=== PATIENT | male | born 1980 | race Caucasian/White ===

== ENCOUNTER 2021-01-27 19:17 | Inpatient (IN) | payer BC ==
[~2021-01-27] VITALS: Ht 182.9 cm; Wt 89.0 kg
--- NOTE | ~2021-01-27 | EMS ---
[facility] [address] [place] [address] EMS Patient Care Report Name: PASCUAL GARCIA Room #: REG Melinda#: [id number] Admission: 01/27/21 Attend Phys: Discharge: Date of : 76 Report #: [id number] THIS REPORT FOR: //name// Report Transmitted: 01/27/2021 19:30 EMS Care Summary [place], [place]/[facility] Incident [id number] @ 01/27/2021 18:40 Incident Location [address] [place] [address] Patient PASCUAL GARCIA Male, 41 Years 1980 Patient Address [address] [place] [address] Patient Medications Ambien, Chief Complaint Cardiac arrest Disposition Transported [place] Dispatch Reason Overdose/Poisoning/Ingestion Transported To [facility] Narrative Initially dispatched with [employer] for an overdose. [employer] arrived on scene and reported over the radio that CPR was in progress. Upon EMS arrival patient was found laying supine on the ground outside of a vehicle, CPR being performed by [employer] crew, iGel inserted, AED attached, unconscious, pulseless, apneic. Girlfriend reported that the patient had been drinking alcohol, had taken Ambien, and an erectile dysfunction medication today. She stated that he had complained of "not feeling well" most of the afternoon. Girlfriend stated that they were driving in the car when he went unconscious. She stated that she [facility] [address] [place] [address] EMS Patient Care Report Name: PASCUAL GARCIA Room #: REG [facility]..#: [id number] Admission: 01/27/21 Attend Phys: Discharge: Date of : 76 Report #: [id number] pulled over, checked his pulse, and immediately began CPR and called 911. [employer] crew reported that their AED had not found a shockable rhythm. Multi-use pads were removed from the AED and connected to the bus monitor. monitor technician showed Asystole. Quick assessment found no adequate IV site and IO was established. Initial dose of Epi was given. Auto Pulse was deployed. Next rhythm check showed PEA. Due to potential narcotic use with alcohol, Narcan was given. After the Narcan and second Epi, bus monitor showed Sinus Rhythm and pulses were palpable. Patient was moved to the stretcher, secured, and loaded into the ambulance. 12-lead EKG showed Sinus rhythm with Right Bundle Branch Block. Patient was transported to [facility] without incident or further cardiac arrest. Full report was given to RN and MD prior to signing this document. Initial Vitals @18:51P: 186,R: 13,EtCO2: 21, @18:51P: 182,R: 14,EtCO2: 19, @18:55P: 164,R: 14,EtCO2: 39, @19:11P: 86,R: 18,EtCO2: 58,SpO2: 67, @19:12P: 87,R: 12,BP: 43/29,EtCO2: 55,SpO2: 59, @19:07P: 79,R: 14,BP: 156/126,EtCO2: 56,SpO2: 74, @19:10P: 79,EtCO2: 56,SpO2: 59, @18:56P: 39,R: 56,EtCO2: 38, @19:06P: 85,R: 15,CO: 6,EtCO2: 58,SpO2: 85, @18:59P: 97,R: 20,EtCO2: 87, @19:02P: 95,R: 5,BP: 62/40,EtCO2: 85, @19:08P: 81,R: 13,EtCO2: 53,SpO2: 65, @18:54P: 167,R: 15,EtCO2: 35, @18:55P: 164,R: 15,EtCO2: 44, @19:03P: 86,R: 0,GCS: 3,CO: 4,EtCO2: 89,SpO2: 92,IA Suspected: false @18:54P: 0,GCS: 3,EtCO2: 30,IA Suspected: false @18:49P: 0,R: 0,Pain: 0/10,GCS: 3,Glucose: 83,IA Suspected: false @19:14P: 78,R: 11,GCS: 3,EtCO2: 58,SpO2: 62, Assessments @18:49MENTAL:Unresponsive,SKIN:Pale,HEENT:Eyes: Left: Dilated,Eyes: Right: Dilated,Head/Face: No Abnormalities,Neck/Airway: No Abnormalities,LUNG SOUNDS:General: No Abnormalities,Left Upper: No Abnormalities,Right Upper: No Abnormalities,Left Lower: No Abnormalities,Right Lower: No Abnormalities,ABDOMEN:General: No Abnormalities,Left Upper: No Abnormalities,Right Upper: No Abnormalities,Left Lower: No Abnormalities,Right Lower: No Abnormalities,PELVIS//GI:No Abnormalities,EXTREMITIES:Left Arm: No Abnormalities,Right Arm: No Abnormalities,Left Leg: No Abnormalities,Right Leg: No Abnormalities,PULSE:NEURO:@19:02MENTAL:Unresponsive,SKIN:Pale,HEENT:Head/Face: No Abnormalities,Eyes: No Abnormalities,Neck/Airway: No Abnormalities,LUNG SOUNDS:General: No Abnormalities,Left Upper: No Abnormalities,Right Upper: No [facility] [address] [place] [address] EMS Patient Care Report Name: JOSEPASCUALCARMEN LYN Room #: REG [facility]#: [id number] Admission: 01/27/21 Attend Phys: Discharge: Date of : 76 Report #: [id number] Abnormalities,Left Lower: No Abnormalities,Right Lower: No Abnormalities,ABDOMEN:General: No Abnormalities,Left Upper: No Abnormalities,Right Upper: No Abnormalities,Left Lower: No Abnormalities,Right Lower: No Abnormalities,PELVIS//GI:No Abnormalities,EXTREMITIES:Left Arm: No Abnormalities,Right Arm: No Abnormalities,Left Leg: No Abnormalities,Right Leg: No Abnormalities,PULSE:NEURO: Impression Cardiac arrest Procedures @19:0312-Lead ECGResponse: UnchangedSucceeded@18:50Epinephrine 1:10 - 1 Milligrams (mg) - Intraosseous (IO)Response: Improved@PTAResponse: ImprovedSucceeded@18:55Epinephrine 1:10 - 1 Milligrams (mg) - Intraosseous (IO)Response: Improved@18:49ALS AssessmentResponse: UnchangedSucceeded@18:54Narcan - 2 Milligrams (mg) - Endotracheal Tube (ET)Response: Improved@18:50Normal Saline (.9% NaCl) 150cc (EZ-IO (Blue 25mm)) Site: DD-Lpcmm-Oixt ProximalResponse: UnchangedSucceeded@PTAiGEL Response: UnchangedSucceeded@18:53Response: ImprovedSucceeded Timeline 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,Response: ImprovedSucceeded, 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,iGEL Response: UnchangedSucceeded, 18:39,Call Received 18:39,Dispatch Notified 18:40,Dispatched 18:41,En Route 18:48,On Scene 18:49,At Patient 18:49,ALS Assessment,Response: UnchangedSucceeded, 18:49,BP: / M,PULSE: 0,RR: 0 R,SPO2: Ox,ETCO2: ,B,PAIN: 0,GCS: 3, 18:50,Normal Saline (.9% NaCl) 150cc EZ-IO (Blue 25mm) Site: MZ-Ompju-Vicu Proximal,Response: UnchangedSucceeded, 18:50,Epinephrine 1:10 - 1 Milligrams (mg) - Intraosseous (IO),Response: Improved 18:51,BP: / M,PULSE: 182,RR: 14 R,SPO2: Ox,ETCO2: 19 ,BG: ,PAIN: ,GCS: , 18:51,BP: / M,PULSE: 186,RR: 13 R,SPO2: Ox,ETCO2: 21 ,BG: ,PAIN: ,GCS: , 18:53,Response: ImprovedSucceeded, 18:54,Narcan - 2 Milligrams (mg) - Endotracheal Tube (ET),Response: Improved 18:54,BP: / M,PULSE: 167,RR: 15 R,SPO2: Ox,ETCO2: 35 ,BG: ,PAIN: ,GCS: , 18:54,BP: / M,PULSE: 0,RR: R,SPO2: Ox,ETCO2: 30 ,BG: ,PAIN: ,GCS: 3, 18:55,Epinephrine 1:10 - 1 Milligrams (mg) - Intraosseous (IO),Response: Improved 18:55,BP: / M,PULSE: 164,RR: 15 R,SPO2: Ox,ETCO2: 44 ,BG: ,PAIN: ,GCS: , 18:55,BP: / M,PULSE: 164,RR: 14 R,SPO2: Ox,ETCO2: 39 ,BG: ,PAIN: ,GCS: , 18:56,BP: / M,PULSE: 39,RR: 56 R,SPO2: Ox,ETCO2: 38 ,BG: ,PAIN: ,GCS: , [facility] [address] [place] [address] EMS Patient Care Report Name: PASCUAL GARCIA Room #: REG [facility]#: [id number] Admission: 01/27/21 Attend Phys: Discharge: Date of : 76 Report #: [id number] 18:59,BP: / M,PULSE: 97,RR: 20 R,SPO2: Ox,ETCO2: 87 ,BG: ,PAIN: ,GCS: , 19:02,BP: 62/40 M,PULSE: 95,RR: 5 R,SPO2: Ox,ETCO2: 85 ,BG: ,PAIN: ,GCS: , 19:03,12-Lead ECG,Response: UnchangedSucceeded, 19:03,BP: / M,PULSE: 86,RR: 0 R,SPO2: 92 Ox,ETCO2: 89 ,BG: ,PAIN: ,GCS: 3, 19:06,BP: / M,PULSE: 85,RR: 15 R,SPO2: 85 Ox,ETCO2: 58 ,BG: ,PAIN: ,GCS: , 19:07,Depart Scene 19:07,BP: 156/126 M,PULSE: 79,RR: 14 R,SPO2: 74 Ox,ETCO2: 56 ,BG: ,PAIN: ,GCS: , 19:08,BP: / M,PULSE: 81,RR: 13 R,SPO2: 65 Ox,ETCO2: 53 ,BG: ,PAIN: ,GCS: , 19:10,BP: / M,PULSE: 79,RR: R,SPO2: 59 Ox,ETCO2: 56 ,BG: ,PAIN: ,GCS: , 19:11,BP: / M,PULSE: 86,RR: 18 R,SPO2: 67 Ox,ETCO2: 58 ,BG: ,PAIN: ,GCS: , 19:12,At Destination 19:12,BP: 43/29 M,PULSE: 87,RR: 12 R,SPO2: 59 Ox,ETCO2: 55 ,BG: ,PAIN: ,GCS: , 19:14,BP: / M,PULSE: 78,RR: 11 R,SPO2: 62 Ox,ETCO2: 58 ,BG: ,PAIN: ,GCS: 3, 19:35,Call Closed Disclaimer v1.1 Copyright 2020 [employer] This EMS Care Summary contains data elements from the applicable legal record (which may be displayed differently). It is designed to provide pertinent information for the following purposes: continuity of care, clinical quality, and state data reporting. The complete legal record is available to ED staff and administrators of the receiving hospital in [employer]'s Patient Tracker. All data is provided "as is."
--- NOTE | ~2021-01-27 | EEG ---
[facility] [place] [address] ELECTROENCEPHALOGRAM Name: PASCUAL GARCIA Room #: 244-P ADM IN M.R.#: [id number] Admission: 01/27/21 Attend Phys: Maxi Cunningham MD Discharge: Date of : 76 Report #: [id number] THIS REPORT FOR: //name// DATE OF SERVICE: 01/28/2021 This patient is being evaluated for post-code and seizure. EEG was done by placing the electrode by standard 10-20 system of electrode placement. Both referential and sequential montages were used for recording. Background activity is disorganized and poorly formed. It is about 5 Hz and 40 microvolt. Some monotonous activity, which continued throughout this record. Photic stimulation is unremarkable. IMPRESSION: Severely abnormal EEG because it is disorganized, slow, and very poorly formed. That is a nonspecific abnormality, which can occur with diffuse injury to the brain, encephalopathy, etc. It is a nonspecific finding. No active epileptiform activity was noticed. Clinical correlation is recommended. By: [id number] [id number] Teo Bell MD /nt
[2021-01-27 19:18] VITALS: BP 137/85
[2021-01-27 19:54] LABS: BE(vivo) -20.2 mmol/L (-2 to +3); PCO2 64.5 mmHg (35.0-45.0); PO2 279.7 mmHg (80.0-100.0); sO2 99.2 % (92.0-98.0)
[2021-01-27 20:37] LABS: HEMATOCRIT 42.9 % (42.0-52.0); HEMOGLOBIN 13.3 gm/dL (14.0-18.0); MCHC 30.9 g/dL (28.0-37.0); MCV 96.9 fL (80.0-100.0); PLATELET COUNT 199 thou/uL (150-400); RBC 4.43 mil/uL (4.50-6.00); RDW 13.5 % (10.5-14.5); WBC 20.7 thou/uL (4.0-11.0)
[2021-01-27 20:38] LABS: CALCIUM 8.4 mg/dL (8.5-10.1); CREATININE 2.8 mg/dL (0.7-1.3); POTASSIUM 3.5 mmol/L (3.5-5.1)
[2021-01-27 20:48] LABS: ALBUMIN 3.3 g/dL (3.4-5.0); DIRECT BILIRUBIN 0.1 mg/dL (<0.1-0.2); TOTAL BILIRUBIN 0.3 mg/dL (0.2-1.0); TOTAL PROTEIN 6.4 g/dL (6.4-8.2)
[2021-01-27 21:04] LABS: URINE BILIRUBIN NEGATIVE (Negative); URINE BLOOD 3+ (Negative); URINE CLARITY CLEAR; URINE COLOR YELLOW; URINE GLUCOSE-RANDOM* NEGATIVE (Negative); URINE KETONES NEGATIVE (Negative); URINE LEUKOCYTES-REFLEX NEGATIVE (Negative); URINE NITRITE-REFLEX NEGATIVE (Negative); URINE PROTEIN (DIPSTICK) 1+ (Negative); URINE UROBILINOGEN 0.2 E.U./dl (0.2-1.0)
[2021-01-27 21:14] LABS: AMP/METHAMP Negative (Negative); BARBITURATES Negative (Negative); BENZODIAZEPINES Negative (Negative); COCAINE Negative (Negative); METHADONE Negative (Negative); OPIATES Negative (Negative); PCP Negative (Negative)
[2021-01-27 21:15] LABS: FINE GRANULAR CASTS 0-3 Few /LPF (None Seen); SQUAMOUS 0-3 Few /LPF (0-3)
[2021-01-27 21:17] LABS: BACTERIA-REFLEX 1-9 Few /HPF (None Seen); CRYSTALS None Seen /LPF (None Seen); URINE WBC-REFLEX 0-5 Rare /HPF (0-5)
[2021-01-27 21:46] LABS: ABSOLUTE NEUTROPHILS 14.5 thou/uL (1.4-8.2); ATYPICAL LYMPHS 1 %; METAMYELOCYTES 1 %
[2021-01-27 22:10] LABS: BE(vivo) -12.4 mmol/L (-2 to +3); HCO3 18.4 mmol/L (22.0-26.0); PCO2 61.6 mmHg (35.0-45.0); PO2 90.9 mmHg (80.0-100.0); pH 7.092 (7.360-7.450); sO2 93.4 % (92.0-98.0)
[2021-01-28] VITALS (132 sets, daily range): BP systolic 68–134; BP diastolic 34–89
--- NOTE | 2021-01-28 01:00 | NUR ---
PT ARRIVED FROM ER VIA CART. PT IS INTUBATED, ON 30MCG OF LEVO, INITIAL BP IS 68/34. TRUNG KIRK CALLED STAT, ORDERS RECEIVED, REFER TO EMAR. PT CONNECTED TO ICU MONITOR AND ASSESSED PER ICU PROTOCOL. DR. NORWOOD CALLED AND NOTIFIED - PER DR. NORWOOD PT IS NOT A CANDIDATE FOR HYPOTHERMIA PROTOCOL. INITIAL BLOOD SUGAR IS 58, ORDERS RECEIVED, REFER TO EMAR FOR TREATMENT. TEMPERATURE ON ARRIVAL TO ICU WAS 35.4 C, BAIRHUGGER PLACED ON PT. 0230 - DR. NORWOOD AT BEDSIDE.
--- NOTE | 2021-01-28 03:23 | NUR ---
PT'S [facility] NUMBER [phone]
--- NOTE | 2021-01-28 10:06 | NUR ---
DR SALEH WITH CARDIOLOGY AND DR FERRELL WITH NEUROLOGY AT BEDSIDE AT 1000. PROPOFOL GTT TITRATED OFF FROM [id number] WITH NO CHANGE IN PT RESPONSIVENESS. PLAN FOR ECHO AND MRI ON MONDAY 01/29.
--- NOTE | 2021-01-28 11:32 | EKG ---
[place] [address] [facility] [place] [address] ELECTROCARDIOGRAM REPORT Name: JOSEPASCUALCARMEN LYN Room #: 244-P ADM IN M.R.#: [id number] Admission: 01/27/21 Attend Phys: Maxi Cunningham MD Discharge: Date of : 76 Report #: [id number] 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1980 Requested By: Mari Stevens Order Number: [id number] MD: Pablo Kessler Measurements Intervals [place] Rate: 63 P: 70 IL: 150 QRS: 48 QRSD: 121 T: -89 QT: 491 QTc: 503 Interpretive Statements Sinus rhythm Nonspecific intraventricular conduction delay Repol abnrm, severe global ischemia (LM/MVD) No previous ECG available for comparison Electronically Signed On 01-28-2021 11:32:12 CDT by Pablo Kessler [email or web address] <ELECTRONICALLY SIGNED> By: Pablo Kessler MD, [facility] 01/28/21 1132 19 19 Pablo Kessler MD, FACC /EPI
[2021-01-28 12:31] LABS: INR 1.11
[2021-01-28 17:45] LABS: BE(vivo) -5.8 mmol/L (-2 to +3); HCO3 20.1 mmol/L (22.0-26.0); PCO2 40.6 mmHg (35.0-45.0); sO2 95.2 % (92.0-98.0)
[2021-01-28 17:46] LABS: pH 7.312 (7.360-7.450)
--- NOTE | 2021-01-28 19:54 | NUR ---
PT IS NOT PROGREESING TOWARDS PLAN OF CARE EVIDENCED BY CONTINUED DEPENDENCE ON VENT FOR OXYGEN SUPPORT. PT HAS HAD NO SIGNIFICANT NEURO IMPROVEMENT, -VE R.CORNEAL REFLEX, AND -VE RESPONSE TO PAIFUL STIMULATION
--- NOTE | 2021-01-28 23:09 | NUR ---
2244; Pt vomitted large amount of greenish brown bile despite OG being patent and connected to LIS. Pt suctioned both orally and via ET tube -- no gastric contents from ETT. OG tube advanced further into stomach, now at 85 cm, and air ausculated over stomach.
[2021-01-29] VITALS (34 sets, daily range): BP systolic 118–153; BP diastolic 82–106
[2021-01-29 05:29] LABS: HEMATOCRIT 36.2 % (42.0-52.0); MCH 30.8 pg (26.0-34.0); MCHC 33.1 g/dL (28.0-37.0); RBC 3.9 mil/uL (4.50-6.00); RDW 13.4 % (10.5-14.5); WBC 12.2 thou/uL (4.0-11.0)
[2021-01-29 05:42] LABS: INR 1.11
[2021-01-29 05:46] LABS: ALBUMIN 2.4 g/dL (3.4-5.0); CALCIUM 6.5 mg/dL (8.5-10.1); POTASSIUM 5.3 mmol/L (3.5-5.1); TOTAL BILIRUBIN 0.8 mg/dL (0.2-1.0)
[2021-01-29 05:56] LABS: CREATININE 4.2 mg/dL (0.7-1.3)
[2021-01-29 06:05] LABS: HAV IgM AB (ANTI-HAV IgM) Negative (Negative); HEPATITIS B SURFACE AG Negative (Negative); HEPATITIS C VIRUS AB <0.1 (0.0-0.9)
--- NOTE | 2021-01-29 07:15 | HC ---
[facility] [place] [address] CONSULTATION Name: PASCUAL GARCIA Room #: 244-P ADM IN M.R.#: [id number] Admission: 01/27/21 Attend Phys: Maxi Cunningham MD Discharge: Date of : [birth year] Report #: [id number] THIS REPORT FOR: cc: FAM - Family physician unknown FAM - Family physician unknown Bert Bess MD ~ DATE OF SERVICE: 01/28/2021 INFECTIOUS DISEASE CONSULTATION ATTENDING PHYSICIAN: Dr. Cunningham. REASON FOR EVALUATION: Post-cardiac arrest, suspected aspiration pneumonitis. HISTORY OF PRESENT ILLNESS: Chart reviewed. The patient examined. This is a 41-year-old man with history of pituitary gland dysfunction, also polysubstance abuse and depression, who was brought to the Emergency Room in an unresponsive state. Through the report, he experienced a cardiac arrest, asystolic upon arrival, began CPR, returned a pulse. He was given doses of epinephrine and Narcan in the field. Apparently, he had been out with friends. Initial ABGs here showed pH of 6.920, pCO2 of 64.5, pO2 of 279.7 on 100%. Initial chest x-ray did not show any acute process; however, repeat this morning does show increasing pacing on the right side and there is question of edema versus inflammatory process. Screening for alcohol and illicit drugs was otherwise negative. Urinalysis showed 0-5 white cells. Initial lactic acid was 14.6, increased to 15.2, more recently was down to 4.1. Troponin was markedly elevated at 4333. CT abdomen and pelvis excluded an occult process that showed no evidence of focal issue including inflammation or pyogenic infection. He is currently in the ICU, maintained on O2 support. He is sedated, now at FiO2 of 50%. ALLERGIES: None known. MEDICATIONS: Include Levaquin, Zosyn, norepinephrine, propofol, pantoprazole. PAST MEDICAL HISTORY: Per the record, as noted above pituitary gland dysfunction, depression, and question of polysubstance abuse. SOCIAL HISTORY: Apparently, he does imbibe alcohol. FAMILY HISTORY: Noncontributory. REVIEW OF SYSTEMS: Not obtainable. PHYSICAL EXAMINATION: GENERAL: He is nonresponsive, maintained in supine position. [place] [address] CONSULTATION Name: PASCUAL GARCIA Room #: [address] [place] [address] IN ..#: [id number] Admission: 01/27/21 Attend Phys: Maxi Cunningham MD Discharge: Date of : 76 Report #: [id number] VITAL SIGNS: Temperature 100.8, pulse 70, respirations 16, blood pressure 145/97. SKIN: Has extensive tattoos that cover good portion of his ____. HEENT: Normocephalic. LUNGS: Scattered coarse breath sounds. HEART: Regular. I do not appreciate a murmur. ABDOMEN: Somewhat firm. There are no overt peritoneal signs. GENITOURINARY: Deferred. RECTAL: Deferred. EXTREMITIES: Distal lower extremity cyanosis. LABORATORY DATA: Chest x-ray as described above. CBC: White count 20.7, H and H 13.3 and 42.9, platelets of 199. Coronavirus testing was negative. Electrolytes: Sodium 150, potassium 3.5, chloride 108, bicarbonate is 18, BUN and creatinine 17 and 2.8, glucose of 42. AST of 638, ALT of 319, albumin of 3.3. ASSESSMENT AND PLAN: Post cardiac arrest, complicated by respiratory failure, likely component of aspiration pneumonitis. We will continue broad-spectrum antimicrobial therapy regimen. At this time, it is reasonable to obtain sputum results. His blood culture is pending as well. It is not entirely clear as to the etiology of the cardiac arrest. Does not appear to be an issue with some sort of underlying infection leading to septic shock at this point. It would be more typical the sequelae as a result of the cardiopulmonary arrest and he aspirated. He remains critically ill and has evidence of multiorgan dysfunction. Monitor expectantly. Continue supportive care. <ELECTRONICALLY SIGNED> By: Bert Bess MD 01/29/21 0715 0749 Bert Bess MD /nt
--- NOTE | 2021-01-29 11:06 | 2DMMODE ---
[facility] [place] [address] 2 D/M-MODE ECHOCARDIOGRAM Name: PASCUAL GARCIA Room #: 244-P ADM IN M.R.#: [id number] Admission: 01/27/21 Attend Phys: Maxi Cunningham MD Discharge: Date of : 76 Report #: [id number] THIS REPORT FOR: cc: FAM - Family physician unknown FAM - Family physician unknown Pablo Kessler MD [facility] ~ APPROVED REPORT Study performed: 01/29/2021 09:48:28 EXAM: Comprehensive 2D, Doppler, and color-flow Echocardiogram Patient Location: ICU Room #: 244 Status: routine BSA: 1.96 HR: 65 bpm BP: 126/91 mmHg Rhythm: NSR Other Information Study Quality: Adequate Indications S^P Cardiac arrest 2D Dimensions RVDd: 32.91 mm IVSd: 7.75 (7-11mm) LVOT Diam: 25.61 (18-24mm) LVDd: 53.56 mm PWd: 9.68 (7-11mm) Ascending Ao: 36.65 (22-36mm) LVDs: 42.97 (25-40mm) Left Atrium: 30.88 (27-40mm) Aortic Root: 39.71 mm IVC: 15.00 mm Volumes Left Atrial Volume (Systole) Single Plane 4CH: 34.48 mL Single Plane 2CH: 38.33 mL LA ESV Index: 22.00 mL/m2 Aortic Valve AoV Peak Tod.: 0.79 m/s AO Peak Gr.: 2.51 mmHg LVOT Max P.82 mmHg LVOT Max V: 0.84 m/s CLAUDINE Vmax: 5.[address] [facility] [address] [facility] [address] [place] [address] 2 D/M-MODE ECHOCARDIOGRAM Name: PASCUAL GARCIA Room #: 244-P [facility] IN [facility]#: [id number] Admission: 01/27/21 Attend Phys: Maxi Cunningham MD Discharge: Date of : 76 Report #: [id number] Mitral Valve E/A Ratio: 0.5 MV Decel. Time: 244.07 ms MV E Max Tod.: 0.38 m/s MV A Tod.: 0.74 m/s MV PHT: 70.78 ms IVRT: 152.25 ms Pulmonary Valve PV Peak Tod.: 0.78 m/s PV Peak Gr.: 2.46 mmHg Pulmonary Vein P Vein S: 0.27 m/s P Vein A: 0.23 m/s P Vein D: 0.25 m/s P Vein A Dur.: 87.7 msec P Vein S/D Ratio: 1.08 Left Ventricle The left ventricle is normal size. There is global hypokinesis of the left ventricle. There is normal left ventricular wall thickness. Left ventricular systolic function is mildly decreased. LVEF is 40-45%. Grade I - abnormal relaxation pattern. Right Ventricle The right ventricle is normal size. The right ventricular systolic function is normal. Atria The left atrium size is normal. The right atrium size is normal. Aortic Valve The aortic valve is normal in structure. No aortic regurgitation is present. There is no aortic valvular stenosis. Mitral Valve The mitral valve is normal in structure. There is no mitral valve regurgitation noted. No evidence of mitral valve stenosis. Tricuspid Valve The tricuspid valve is normal in structure. There is no tricuspid valve regurgitation noted. Pulmonic Valve The pulmonary valve is normal in structure. There is no pulmonic valvular regurgitation. [facility] [address] [place] [address] 2 D/M-MODE ECHOCARDIOGRAM Name: PASCUAL GARCIAKAYDEN Room #: 244-P [facility] IN .R.#: [id number] Admission: 01/27/21 Attend Phys: Maxi Cunningham MD Discharge: Date of : 76 Report #: [id number] Great Vessels The aortic root is normal in size. IVC is normal in size and collapses >50% with inspiration. Pericardium There is no pericardial effusion. <Conclusion> Normal left ventricle size/wall thickness Ejection fraction 45% Grade 1 diastolic dysfunction Moderate mid anteroseptal hypokinesis Normal right ventricular size/function Normal atrial size Normal aortic/mitral valve structure and function No tricuspid valve insufficiency No pericardial effusion Normal aortic root size. <ELECTRONICALLY SIGNED> By: Pablo Kessler MD, [facility] 01/29/21 1106 110 05 Pablo Kessler MD, [facility] /INF
--- NOTE | 2021-01-29 11:54 | NUR ---
Chart review. Dx post code out of hospital. Vent 40% FIO2, peep 5. His mom bart # [phone], is at bedside. Intro to cm and dcp. He recently moved into an appartment with roomantes last friday. Independent. No DME, Drives. 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 PCP Dr Arley Cantu. Support from family if needed, sister lives here, other silbings and dad live out of state but have come here per bart. Will cont following as needed for dc needs.
--- NOTE | 2021-01-29 18:13 | NUR ---
PATIENT NOT PROGRESSING TOWARDS THE PLAN OF CARE EVIDENCED BY CONTINUED UNRESPONSIVENESS. MTN ROUNDED TODAY. MULTIPLE FAMILY MEMBERS VISITED INCLUDING BROTHER, FORMER SPOUSE, DAUGHTER, AND MOTHER. LEE, THE MOTHER, INFORMED THIS RN THAT ONLY SHE AND THE PATIENT'S FATHER, BALAJI, COULD CALL AND ASK FOR INFORMATION. PATIENT'S AUTHORIZED CONTACTS WAS UPDATED.
[2021-01-30] VITALS (24 sets, daily range): BP systolic 125–166; BP diastolic 87–106
[2021-01-30 05:17] LABS: HEMATOCRIT 32.4 % (42.0-52.0); HEMOGLOBIN 10.8 gm/dL (14.0-18.0); MCH 30.7 pg (26.0-34.0); MCHC 33.3 g/dL (28.0-37.0); MCV 92.3 fL (80.0-100.0); RBC 3.52 mil/uL (4.50-6.00); RDW 12.9 % (10.5-14.5); WBC 12.8 thou/uL (4.0-11.0)
[2021-01-30 05:42] LABS: ALBUMIN 2.3 g/dL (3.4-5.0); CALCIUM 6.7 mg/dL (8.5-10.1); POTASSIUM 4.6 mmol/L (3.5-5.1); TOTAL BILIRUBIN 0.5 mg/dL (0.2-1.0); TOTAL PROTEIN 5.2 g/dL (6.4-8.2)
[2021-01-30 05:54] LABS: CREATININE 5.3 mg/dL (0.7-1.3)
--- NOTE | 2021-01-30 06:00 | NUR ---
PT REMAINS INTUBATED AND NONRESPONBSIVE. NOT PROGRESSING TOWARD GOALS S/C FOR MRI OF BRAIN TODAY. WILL CONT TO MONITOR
--- NOTE | 2021-01-30 12:40 | NUR ---
If GI agrees, start enteral nutrition of vital AF 1.2 at 20ml/hr and progress to goal of 65ml/hr. 250ml water flush every 6hr.
--- NOTE | 2021-01-30 13:13 | NUR ---
RN CONTACTED JESUS TERRY WITH GI TO CONFIRM PT COULD START TUBE FEEDS. GI WAS OK WITH STARTING THEM. RN PUT ORDER IN. WILL START TUBE FEEDS AND CONTINUE TO MONITOR TOLERATION TO THEM.
--- NOTE | 2021-01-30 13:26 | NUR ---
A RIGHT IJ TRIPLE LUMEN CENTRAL LINE WAS PLACED IN THE RIGHT JUGULAR PER HOSPITAL POLICY TO REPLACE THE RIGHT FEMORAL CATHETER. THE 25CM LINE WAS ADVANCED WITHOUT DIFFICULTY. A STAT CHEST XRAY WAS ORDERED FOR CONFIRMATION.
--- NOTE | 2021-01-30 21:00 | NUR ---
UPDATED PT MOTHER LEE ON CURRENT CONDITION AND PROGRESSION TOWARDS GOALS. ALL CONCERNS ADDRESSED AND QUESTIONS ANSWERED. WILL CONTINUE TO MONITOR
[2021-01-31] VITALS (123 sets, daily range): BP systolic 109–160; BP diastolic 71–98
[2021-01-31 05:20] LABS: HEMATOCRIT 31.4 % (42.0-52.0); HEMOGLOBIN 10.7 gm/dL (14.0-18.0); MCH 31.2 pg (26.0-34.0); MCHC 34.1 g/dL (28.0-37.0); MCV 91.6 fL (80.0-100.0); RBC 3.42 mil/uL (4.50-6.00); RDW 13.1 % (10.5-14.5); WBC 13.8 thou/uL (4.0-11.0)
[2021-01-31 05:50] LABS: CALCIUM 6.8 mg/dL (8.5-10.1); POTASSIUM 4.1 mmol/L (3.5-5.1)
--- NOTE | 2021-01-31 14:35 | NUR ---
AT APPROXIMATELY 1344 THIS RN WAS INFORMED THAT PT WAS "CLAMPING DOWN ON ETT." BY ANNEL PARKS. RN RUSHED TO PT'S ROOM AND WAS INFORMED BY RT URENA AND FARSHAD THAT PT STARTED BITTING DOWN ON ETT THEY WERE ATTEMPTING TO ADJUST BITE BLOCK. RN STARTED PT ON PROPOFOL GTT AND CALLED DR WARD AT 1350 REGARDING SITUATION AND INFORMED THAT PT HAD A LARGE LEAK ON VENT. DR WARD AT BEDSIDE AT 1400. 14:05 10 CC OF PROPOFOL BOLUS GIVEN PER DR WARD 14:07 140 MG OF SUCCYNYLCHOLINE GIVEN 14:15 60 MG OF SUCCYNYLCHOLINE GIVEN 14:[address] WARD WITH 7.5 ETT 24 AT TEETH. PT'S MOTHER, LEE, INFORMED OF INCIDENT. SHE WAS ALSO NOTIFIED THAT MRI IS PLANNED FOR TOMORROW IN THE AM. WILL CONTINUE TO MONITOR.
--- NOTE | 2021-01-31 19:23 | NUR ---
SPOKE TO PT'S PARENTS AT APPROXIMATELY 1545 AT THAT TIME FATHER VERBALIZED THAT HE WAS "VERY FRUSTRATED BECAUSE END-OF-LIFE CONVERSATIONS" SHOULD BE HAPPENING FOR PT. DR ALCALA WAS CALLED AND INFORMED THAT PT'S PARENTS WOULD LIKE TO MEET. MEETING WAS PLANNED FOR 09 ON 02/01. PT TAKEN TO MRI AT 1730. RESULTS PENDING.
--- NOTE | 2021-01-31 23:16 | NUR ---
RECEIVED CRITICAL MRI/MRA RESULTS, CALLS PLACED TO DR. PERERA AND CALL RETURNED AT 9805. RESULTS COMMUNICATED AND NO NEW ORDERS RECEIVED AT THIS TIME. PER DR. PERERA, HE WILL GIVE THE PATIENTS MOTHER LEE A CALL TO COMMINCATE THE FINDINGS. WILL CONTINUE TO MONITOR AND UPDATE.
[2021-02-01] VITALS (111 sets, daily range): BP systolic 119–160; BP diastolic 70–100
[2021-02-01 05:34] LABS: HEMATOCRIT 32.5 % (42.0-52.0); HEMOGLOBIN 11.2 gm/dL (14.0-18.0); MCH 31.7 pg (26.0-34.0); MCHC 34.3 g/dL (28.0-37.0); MCV 92.4 fL (80.0-100.0); RBC 3.51 mil/uL (4.50-6.00); RDW 13.3 % (10.5-14.5); WBC 10.5 thou/uL (4.0-11.0)
[2021-02-01 05:43] LABS: CALCIUM 7.1 mg/dL (8.5-10.1); CREATININE 6.6 mg/dL (0.7-1.3); POTASSIUM 3.9 mmol/L (3.5-5.1)
--- NOTE | 2021-02-01 08:11 | NUR ---
ASSUMED CARE OF PT AT 0700. DR SALEH AT BEDSIDE At 0810. NO NEW ORDERS GIVEN, WILL FOLLOW POC.
--- NOTE | 2021-02-01 12:28 | NUR ---
Discussed during los and unit rounds. Family possible thinking about palliative extubation, comfort. Will cont following as needed for support.
--- NOTE | 2021-02-01 14:11 | NUR ---
ASSUMED CARE OF PT AT 0700. FAMILY AND DR. ALCALA AT BEDSIDE AT 0900. FAMILY MADE DECISION TO PALLITIVELY EXTUBATE AFTER MEETING [facility] . ODRDERS GIVEN AND EXTUABTION STARTED AT 1414.
[2021-02-02] VITALS (9 sets, daily range): BP systolic 53–98; BP diastolic 29–59
--- NOTE | 2021-02-02 03:23 | NUR ---
ASSUMED CARE OF PATIENT AT 1900. FAMILY AT BEDSIDE. DISCUSSED WITH THEM POC. AGONAL BREATHING THOUGH THE NIGHT. HOG RIBBER NOTIFIED, ORDERS OBTAINED. MINIMAL RELIEF. HOG RIBBER UPDATED, NEW ORDERS RECIEVED. PATIENT IS COMFORT CARE STATUS. FAMILY IS AWARE WE MAY NEED TO MOVE HIM TO M/S FLOOR. WILL CONTINUE TO MONITOR FOR COMFORT.
--- NOTE | 2021-02-02 11:55 | NUR ---
Discussed during los and unit rounds. On comfort care. Hospitalist requested letter for mom and dad to show that their son in hospital and can not make decision. Cm provided notes to his mom and dad. Active listen and support during visit. Will cont following as needed for dc needs.
--- NOTE | 2021-02-02 18:16 | NUR ---
GAVE REPORT TO OFFGOING NURSE AT 1515. TRANSFERED PT WITH BELONGINGS AND FAMILY MEMBERS. PT WAS TRANSFERED WITH MORPHINE GTT INFUSING.
== END 2021-02-02 20:55 | DRG 208 ==
LOC: ER 19:17 → ICU 22:31 → EROBS 22:31 → ICU 01-28 01:03 → 4S 02-02 17:46
PROVIDERS: Emergency Medicine; Internal Medicine Gastroenterology; Internal Medicine Pulmonary Disease; Nurse Practitioner; Nurse Practitioner Family; Pediatrics; ADMIT Hospitalist; ATTEND Hospitalist
DX: J96.01 Acute respiratory failure with hypoxia (principal); I21.4 Non-ST elevation (NSTEMI) myocardial infarction; G92.8 Other toxic encephalopathy; K92.0 Hematemesis; N17.9 Acute kidney failure, unspecified; E87.2 Acidosis; J96.02 Acute respiratory failure with hypercapnia; F32.9 Major depressive disorder, single episode, unspecified; G47.00 Insomnia, unspecified; I95.9 Hypotension, unspecified; E16.2 Hypoglycemia, unspecified; F10.10 Alcohol abuse, uncomplicated; I46.9 Cardiac arrest, cause unspecified; D72.829 Elevated white blood cell count, unspecified; R57.0 Cardiogenic shock; R74.01 Elevation of levels of liver transaminase levels; D64.9 Anemia, unspecified; T85.9XXA Unspecified complication of internal prosthetic device, implant and graft, initial encounter; Z66 Do not resuscitate; Z51.5 Encounter for palliative care
CPT/HCPCS: 10078